=== PATIENT | female | born 1970 ===

== ENCOUNTER 2016-10-18 22:05 | Emergency (ER) | payer MEDICARE, OTHER ==
[2016-10-18 22:06] VITALS: BMI 29.1
[2016-10-18 22:18] VITALS: BP 111/72; PULSE 85; RESP 16; TEMP 97.5; O2SAT 98
--- NOTE | 2016-10-18 22:27 | ED PDOC ---
HPI: General Adult Time Seen by Provider: 10/18/16 22:19 Chief Complaint (Nursing): Female Genitourinary History Per: Patient Additional Complaint(s): Pt. states for the past 2 days she's had dysuria without hematuria, pelvic pain , frequency, urgency, fever. Denies N/V/D, fever, incontinence, flank pain. Past Medical History Reviewed: Historical Data, Nursing Documentation, Vital Signs Vital Signs: Last Vital Signs Temp 97.5 F L 10/18/16 22:16 Pulse 85 10/18/16 22:16 Resp 16 10/18/16 22:16 BP 111/72 10/18/16 22:16 Pulse Ox 98 10/18/16 22:28 - Medical History PMH: Anemia, Anxiety, Asthma, Bipolar Disorder, Depression, HTN, Hyperlipidemia , Hypothyroidism, Paranoia, Schizophrenia Denies: Chronic Kidney Disease, Sexually Transmitted Disease - Surgical History Surgical History: Tonsillectomy - Family History Family History: States: Hypertension - Immunization History Hx Tetanus Toxoid Vaccination: No Hx Influenza Vaccination: No Hx Pneumococcal Vaccination: No - Home Medications Home Medications: Ambulatory Orders Medication Instructions Recorded Albuterol HFA [Ventolin HFA 90 2 puff PO DAILY 08/31/16 mcg/actuation (8 g)] Alprazolam [Xanax] 0.25 mg PO DAILY 08/31/16 Aluminum Hydroxide [Aluminum 5 ml PO DAILY 08/31/16 Hydroxide Gel 320mg /5ml Susp (Bulk)] Benztropine [Benztropine Mesylate] 1 mg PO HS 08/31/16 Docusate Sodium/Sennosides A 50 mg PO DAILY 08/31/16 [Senokot S 50 MG-8.6 MG] LORazepam [Ativan] 1 mg PO DAILY 08/31/16 Levothyroxine [Synthroid] 125 mcg PO DAILY 08/31/16 Olanzapine [Olanzapine Odt] 15 mg PO HS 08/31/16 Promethazine DM [Phenergan DM 1 tsp PO TID 08/31/16 Syrup] Ramipril [Altace] 10 mg PO DAILY 08/31/16 Tramadol HCl [Ultram] 50 mg PO BID 08/31/16 Zolpidem Tartrate [Ambien] 10 mg PO HS 08/31/16 Enalapril Maleate [Vasotec] 10 mg PO DAILY #30 tab 09/07/16 Gabapentin [Neurontin] 300 mg PO BID #60 cap 09/07/16 Levothyroxine [Synthroid] 50 mcg PO DAILY@0630 #30 tab 09/07/16 OLANZapine [Zyprexa] 10 mg PO HS #30 tab 09/07/16 Sertraline [Zoloft] 100 mg PO DAILY #30 tab 09/07/16 traZODone [Desyrel] 100 mg PO HS PRN #30 tab 09/07/16 Phenazopyridine [Pyridium] 200 mg PO BID #6 tab 10/18/16 - Allergies Allergies/Adverse Reactions: Allergies Allergy/AdvReac Type Severity Reaction Status Date / Time haloperidol Allergy Severe SWELLING Verified 08/28/16 06:50 metoclopramide Allergy Severe SWELLING Verified 08/28/16 06:50 shellfish derived Allergy Severe RASH Verified 08/28/16 06:50 prednisone Allergy Intermediate SWELLING Verified 08/28/16 06:50 aspirin Allergy SWELLING Verified 08/28/16 06:50 Penicillins Allergy ANAPHYLAXIS Verified 08/28/16 06:50 Review of Systems ROS Statement: Except As Marked, All Systems Reviewed And Found Negative Genitourinary Female: Positive for: Dysuria Physical Exam - Physical Exam Appears: Positive for: Well, Non-toxic, No Acute Distress Skin: Positive for: Normal Color, Warm. Negative for: Rash Gastrointestinal/Abdominal: Positive for: Normal Exam, Soft. Negative for: Tenderness Back: Positive for: Normal Inspection. Negative for: L CVA Tenderness, R CVA Tenderness Neurologic/Psych: Positive for: Alert, Oriented - Laboratory Results Urine POC: Negative Urine dip results: Negative for: Leukocyte Esterase, Blood, Nitrate, Ketones, Glucose, Bilirubin, Protein - ECG O2 Sat by Pulse Oximetry: 98 - Progress ED Course And Treament: Urine culture sent. Disposition - Clinical Impression Clinical Impression: Dysuria - Patient ED Disposition Is Patient to be Admitted: No - Disposition Referrals: [facility] [Outside] Disposition: Routine/Home Disposition Time: 23:20 Condition: STABLE Prescriptions: Phenazopyridine [Pyridium] 200 mg PO BID #6 tab Instructions: Dysuria (ED) Forms: [email or web address] (Turkish) Print Language: VIETNAMESE
== END 2016-10-18 23:56 | disposition home or self-care (01) ==
LOC: H.ER 22:05
DX: N39.0 Urinary tract infection, site not specified (principal); F20.9 Schizophrenia, unspecified; F31.9 Bipolar disorder, unspecified; F41.9 Anxiety disorder, unspecified; I10 Essential (primary) hypertension; Z88.0 Allergy status to penicillin

== ENCOUNTER 2016-10-30 05:11 | Emergency (ER) | payer MEDICARE, OTHER ==
[2016-10-30 05:11] VITALS: BMI 29.1
[2016-10-30 05:29] VITALS: BP 117/82; PULSE 83; RESP 16; TEMP 98.3; O2SAT 100
[2016-10-30] MEDS ORDERED: Tmp-Smz 800 mg-160 mg DS Tab PO STA (05:51)
--- NOTE | 2016-10-30 06:07 | ED PDOC ---
HPI: Skin/Bite Injury Time Seen by Provider: 10/30/16 05:29 Chief Complaint (Nursing): Abnormal Skin Integrity Chief Complaint (Provider): Abnormal Skin Integrity History Per: Patient History/Exam Limitations: no limitations Onset/Duration Of Symptoms: Days (x2) Current Symptoms Are (Timing): Still Present Additional Complaint(s): Jolanta Yancey is a 45 year old female with previous medical history of hypertension, thyroid disease, and bipolar disorder, who presents to the emergency department with a complaint lower extremities rash associated with swelling ongoing for 2 days. Denied any fever, chills, nausea, vomiting, diarrhea, shortness of breath or chest pain. Patient stated she has parasitic sensation and warmth to bilateral feet and shins, right more than left. PMD: none provided Past Medical History Reviewed: Historical Data, Nursing Documentation, Vital Signs Vital Signs: Last Vital Signs Temp 98.3 F 10/30/16 05:27 Pulse 83 10/30/16 05:27 Resp 16 10/30/16 05:27 BP 117/82 10/30/16 05:27 Pulse Ox 100 10/30/16 06:19 - Medical History PMH: Anemia, Anxiety, Asthma, Bipolar Disorder, Depression, HTN, Hyperlipidemia , Hypothyroidism, Paranoia, Schizophrenia Denies: Chronic Kidney Disease, Sexually Transmitted Disease - Surgical History Surgical History: Tonsillectomy - Family History Family History: States: Unknown Family Hx, Hypertension - Social History Current smoker - smoking cessation education provided: No Alcohol: None Drugs: Denies - Immunization History Hx Tetanus Toxoid Vaccination: No Hx Influenza Vaccination: No Hx Pneumococcal Vaccination: No - Home Medications Home Medications: Ambulatory Orders Medication Instructions Recorded Albuterol HFA [Ventolin HFA 90 2 puff PO DAILY 08/31/16 mcg/actuation (8 g)] Alprazolam [Xanax] 0.25 mg PO DAILY 08/31/16 Aluminum Hydroxide [Aluminum 5 ml PO DAILY 08/31/16 Hydroxide Gel 320mg /5ml Susp (Bulk)] Benztropine [Benztropine Mesylate] 1 mg PO HS 08/31/16 Docusate Sodium/Sennosides A 50 mg PO DAILY 08/31/16 [Senokot S 50 MG-8.6 MG] LORazepam [Ativan] 1 mg PO DAILY 08/31/16 Levothyroxine [Synthroid] 125 mcg PO DAILY 08/31/16 Olanzapine [Olanzapine Odt] 15 mg PO HS 08/31/16 Promethazine DM [Phenergan DM 1 tsp PO TID 08/31/16 Syrup] Ramipril [Altace] 10 mg PO DAILY 08/31/16 Tramadol HCl [Ultram] 50 mg PO BID 08/31/16 Zolpidem Tartrate [Ambien] 10 mg PO HS 08/31/16 Enalapril Maleate [Vasotec] 10 mg PO DAILY #30 tab 09/07/16 Gabapentin [Neurontin] 300 mg PO BID #60 cap 09/07/16 Levothyroxine [Synthroid] 50 mcg PO DAILY@0630 #30 tab 09/07/16 OLANZapine [Zyprexa] 10 mg PO HS #30 tab 09/07/16 Sertraline [Zoloft] 100 mg PO DAILY #30 tab 09/07/16 traZODone [Desyrel] 100 mg PO HS PRN #30 tab 09/07/16 Phenazopyridine [Pyridium] 200 mg PO BID #6 tab 10/18/16 Hydrocortisone 1% Cream [Cortizone 1 inch TP BID #1 tube 10/30/16 1% Cream] Sulfamethoxazole/Trimethoprim 1 tab PO BID #20 tab 10/30/16 [Bactrim DS 800 mg-160 mg] - Allergies Allergies/Adverse Reactions: Allergies Allergy/AdvReac Type Severity Reaction Status Date / Time haloperidol Allergy Severe SWELLING Verified 08/28/16 06:50 metoclopramide Allergy Severe SWELLING Verified 08/28/16 06:50 shellfish derived Allergy Severe RASH Verified 08/28/16 06:50 prednisone Allergy Intermediate SWELLING Verified 08/28/16 06:50 aspirin Allergy SWELLING Verified 08/28/16 06:50 Penicillins Allergy ANAPHYLAXIS Verified 08/28/16 06:50 Review of Systems ROS Statement: Except As Marked, All Systems Reviewed And Found Negative Constitutional: Negative for: Fever, Chills Cardiovascular: Negative for: Chest Pain Respiratory: Negative for: Shortness of Breath Gastrointestinal: Negative for: Nausea, Vomiting, Diarrhea Skin: Positive for: Rash (bilateral feet and shins; right > left) Physical Exam - Reviewed Nursing Documentation Reviewed: Yes Vital Signs Reviewed: Yes - Physical Exam Extremity: Positive for: Pedal Edema (mild; right > left), Swelling (mild; right > left), Other (bilateral vesicular bites on feet extending to dorsal aspect of tibial plateau; right > left) - ECG O2 Sat by Pulse Oximetry: 100 (RA) Pulse Ox Interpretation: Normal Medical Decision Making Medical Decision Making: Initial Impression: Multiple insect bites to LE Initial Plan: * Bactrim DS PO Time: Upon provider evaluation, patient is medically stable and requires no further treatment in the ED at this time. Patient will be discharged home with Rx for Cortizone and Bactrim DS. Counseling was provided and all questions were answered regarding diagnosis and need for follow up with PCP. There is agreement to discharge plan. Return if symptoms persist or worsen. Clinical Impression: Infected insect bites Scribe Attestation: Documented by Ruth Guillory, acting as a scribe for Gregory Augustine MD. Provider Scribe Attestation: All medical record entries made by the Scribe were at my direction and personally dictated by me. I have reviewed the chart and agree that the record accurately reflects my personal performance of the history, physical exam, medical decision making, and the department course for this patient. I have also personally directed, reviewed, and agree with the discharge instructions and disposition. Disposition - Clinical Impression Clinical Impression: Infected insect bite - Patient ED Disposition Is Patient to be Admitted: No Doctor Will See Patient In The: Office Counseled Patient/Family Regarding: Diagnosis, Rx Given - Disposition Disposition: Routine/Home Disposition Time: 06:00 Condition: STABLE Prescriptions: Hydrocortisone 1% Cream [Cortizone 1% Cream] 1 inch TP BID #1 tube Sulfamethoxazole/Trimethoprim [Bactrim DS 800 mg-160 mg] 1 tab PO BID #20 tab Instructions: Insect Bite or Sting (ED) Forms: [employer] (Greek)
[2016-10-30] MEDS ORDERED: Tmp-Smz 800 mg-160 mg DS Tab ONE (06:08)
== END 2016-10-30 06:14 | disposition home or self-care (01) ==
LOC: H.ER 05:11
DX: S80.862A Insect bite (nonvenomous), left lower leg, initial encounter (principal); S80.861A Insect bite (nonvenomous), right lower leg, initial encounter; W57.XXXA Bitten or stung by nonvenomous insect and other nonvenomous arthropods, initial encounter; I10 Essential (primary) hypertension

== ENCOUNTER 2016-11-02 03:46 | Emergency (ER) | payer MEDICARE, OTHER ==
[2016-11-02 03:46] VITALS: BMI 29.1
[2016-11-02 04:35] VITALS: BP 118/80; PULSE 81; RESP 16; TEMP 97.5; O2SAT 98
== END 2016-11-02 04:52 | disposition left against medical advice (07) ==
LOC: H.ER 03:46
DX: Z02.89 Encounter for other administrative examinations (principal)

== ENCOUNTER 2016-12-12 04:28 | Emergency (ER) | payer MEDICARE, OTHER ==
[2016-12-12 04:28] VITALS: BMI 29.1
[2016-12-12 04:54] VITALS: BP 134/83; PULSE 87; RESP 16; TEMP 98.1; O2SAT 97
--- NOTE | 2016-12-12 04:55 | ED PDOC ---
HPI: Abdomen Time Seen by Provider: 12/12/16 04:30 Chief Complaint (Nursing): Abdominal Pain Chief Complaint (Provider): ''urination issues'' History Per: Patient History/Exam Limitations: no limitations Onset/Duration Of Symptoms: Days (1 week) Outside of [place] travel?: No Current Symptoms Are (Timing): Intermittent Episodes Severity: Mild Quality Of Discomfort: Burning Associated Symptoms: Urinary Symptoms. denies: Fever, Chills, Nausea, Diarrhea , Loss Of Appetite, Back Pain Exacerbating Factors: denies: None Last Bowel Movement: Today Additional History Per: Patient Additional Complaint(s): CC: ''urination issues'' 46 y/o F with h/o multiple psych disorders presenting with problems with urination x 1 week. States intermittent burning with urination and frequency. No urgency, f/c/n/v/abdominal pain/diarrhea. Patient is a poor historian, displaying bed seeking behavior and asking to be admitted to the hospital. States being compliant with her medication. Denies suicidal or homicidal ideations. Abnormal Vaginal Bleeding: No Last Menstral Period: ''irregular'', doesnt remember date Past Medical History Vital Signs: Last Vital Signs Temp 98.1 F 12/12/16 04:41 Pulse 87 12/12/16 04:41 Resp 16 12/12/16 04:41 BP 134/83 12/12/16 04:41 Pulse Ox 97 12/12/16 05:15 - Medical History PMH: Anemia, Anxiety, Asthma, Bipolar Disorder, Depression, HTN, Hyperlipidemia , Hypothyroidism, Paranoia, Schizophrenia Denies: Chronic Kidney Disease, Sexually Transmitted Disease - Surgical History Surgical History: Tonsillectomy - Family History Family History: States: Unknown Family Hx, Hypertension - Immunization History Hx Tetanus Toxoid Vaccination: No Hx Influenza Vaccination: No Hx Pneumococcal Vaccination: No - Home Medications Home Medications: Ambulatory Orders Medication Instructions Recorded Albuterol HFA [Ventolin HFA 90 2 puff PO DAILY 08/31/16 mcg/actuation (8 g)] Alprazolam [Xanax] 0.25 mg PO DAILY 08/31/16 Aluminum Hydroxide [Aluminum 5 ml PO DAILY 08/31/16 Hydroxide Gel 320mg /5ml Susp (Bulk)] Benztropine [Benztropine Mesylate] 1 mg PO HS 08/31/16 Docusate Sodium/Sennosides A 50 mg PO DAILY 08/31/16 [Senokot S 50 MG-8.6 MG] LORazepam [Ativan] 1 mg PO DAILY 08/31/16 Levothyroxine [Synthroid] 125 mcg PO DAILY 08/31/16 Olanzapine [Olanzapine Odt] 15 mg PO HS 08/31/16 Promethazine DM [Phenergan DM 1 tsp PO TID 08/31/16 Syrup] Ramipril [Altace] 10 mg PO DAILY 08/31/16 Tramadol HCl [Ultram] 50 mg PO BID 08/31/16 Zolpidem Tartrate [Ambien] 10 mg PO HS 08/31/16 Enalapril Maleate [Vasotec] 10 mg PO DAILY #30 tab 09/07/16 Gabapentin [Neurontin] 300 mg PO BID #60 cap 09/07/16 Levothyroxine [Synthroid] 50 mcg PO DAILY@0630 #30 tab 09/07/16 OLANZapine [Zyprexa] 10 mg PO HS #30 tab 09/07/16 Sertraline [Zoloft] 100 mg PO DAILY #30 tab 09/07/16 traZODone [Desyrel] 100 mg PO HS PRN #30 tab 09/07/16 Phenazopyridine [Pyridium] 200 mg PO BID #6 tab 10/18/16 Hydrocortisone 1% Cream [Cortizone 1 inch TP BID #1 tube 10/30/16 1% Cream] Sulfamethoxazole/Trimethoprim 1 tab PO BID #20 tab 10/30/16 [Bactrim DS 800 mg-160 mg] - Allergies Allergies/Adverse Reactions: Allergies Allergy/AdvReac Type Severity Reaction Status Date / Time haloperidol Allergy Severe SWELLING Verified 08/28/16 06:50 metoclopramide Allergy Severe SWELLING Verified 08/28/16 06:50 shellfish derived Allergy Severe RASH Verified 08/28/16 06:50 prednisone Allergy Intermediate SWELLING Verified 08/28/16 06:50 aspirin Allergy SWELLING Verified 08/28/16 06:50 Penicillins Allergy ANAPHYLAXIS Verified 08/28/16 06:50 Review of Systems ROS Statement: Except As Marked, All Systems Reviewed And Found Negative Physical Exam - Physical Exam Appears: Positive for: Non-toxic, No Acute Distress Head Exam: Positive for: ATRAUMATIC, NORMOCEPHALIC Skin: Positive for: Normal Color, Warm, Dry Eye Exam: Positive for: EOMI, PERRL Cardiovascular/Chest: Positive for: Regular Rate, Rhythm Respiratory: Positive for: Normal Breath Sounds Gastrointestinal/Abdominal: Positive for: Bowel Sounds, Soft. Negative for: Tenderness, Mass, Distended, Guarding, Rebound, Hernia, Asicites Back: Negative for: L CVA Tenderness, R CVA Tenderness Extremity: Negative for: Pedal Edema Neurologic/Psych: Positive for: Alert, Oriented - ECG O2 Sat by Pulse Oximetry: 97 - Progress ED Course And Treament: Dysuria Vital signs stable UA WNL Urine BHCG negative Re-evaluation Time: 05:55 Condition: Re-examined, Improving,but remains with symptoms Disposition - Clinical Impression Clinical Impression: Abdominal discomfort, Alcohol use disorder, mild, abuse - Disposition Disposition: Routine/Home Disposition Time: 05:57 Condition: GOOD Additional Instructions: patient to follow up with PMD and psych as directed Er precautions given Instructions: Dysuria (ED) Forms: [employer] (Ecuadorean) Print Language: SLOVENIAN
[2016-12-12 05:44] LABS: RBC URINE 5 /hpf (0-3); URINE BACTERIA RARE (<OCC); URINE BILIRUBIN NEGATIVE (NEGATIVE); URINE BLOOD NEGATIVE (NEGATIVE); URINE COLOR AMBER (YELLOW); URINE GLUCOSE (UA) NEG (Normal); URINE KETONE TRACE mg/dL (NEGATIVE); URINE LEUKOCYTE ESTERASE NEG Leu/uL (Negative); URINE PROTEIN 30 mg/dL (NEGATIVE); WBC URINE 2 /hpf (0-5)
== END 2016-12-12 06:18 | disposition home or self-care (01) ==
LOC: H.ER 04:28
DX: R30.0 Dysuria (principal)

== ENCOUNTER 2016-12-12 14:36 | Emergency (ER) | payer MEDICARE, OTHER ==
[2016-12-12 14:36] VITALS: BMI 29.1
[2016-12-12 14:40] VITALS: O2SAT 98
--- NOTE | 2016-12-12 15:16 | ED PDOC ---
HPI: General Adult Time Seen by Provider: 12/12/16 15:06 Chief Complaint (Nursing): Weakness/Neurological Deficit Chief Complaint (Provider): Chest pain and lightheadedness History Per: Patient History/Exam Limitations: no limitations Current Symptoms Are (Timing): Still Present Additional Complaint(s): 46 y/o female with a past medical history of hypertension, hypercholesterolemia , hypothyroidism, and schizoaffective disorder who presents to the emergency department with a complaint of chest pain, experiencing a "strong" heartbeat, lightheadedness and shortness of breath since 10 am this morning after being outside all day. Reports she was depressed last week and felt like she wanted to hurt someone in the homeless [facility] specifically because she lives there. Patient admits she is non-compliant with her medications because she ran out. Denies leg swelling, cough, or hallucinations. PMD: Dr. Cristobal Woo DO Past Medical History Reviewed: Historical Data, Nursing Documentation, Vital Signs Vital Signs: Last Vital Signs Temp 98.4 F 12/12/16 16:55 Pulse 98 H 12/12/16 16:55 Resp 18 12/12/16 16:55 BP 112/73 12/12/16 16:55 Pulse Ox 98 12/12/16 16:55 - Medical History PMH: Anemia, Anxiety, Asthma, Bipolar Disorder, Depression, HTN, Hyperlipidemia , Hypothyroidism, Paranoia, Schizophrenia Denies: Chronic Kidney Disease, Sexually Transmitted Disease - Surgical History Surgical History: Tonsillectomy - Family History Family History: States: Hypertension, Other Other Family History: Leukemia and anemia (father) - Social History Current smoker - smoking cessation education provided: No Alcohol: None Drugs: Denies - Immunization History Hx Tetanus Toxoid Vaccination: No Hx Influenza Vaccination: No Hx Pneumococcal Vaccination: No - Home Medications Home Medications: Ambulatory Orders Medication Instructions Recorded Albuterol HFA [Ventolin HFA 90 2 puff PO DAILY 08/31/16 mcg/actuation (8 g)] Alprazolam [Xanax] 0.25 mg PO DAILY 08/31/16 Aluminum Hydroxide [Aluminum 5 ml PO DAILY 08/31/16 Hydroxide Gel 320mg /5ml Susp (Bulk)] Benztropine [Benztropine Mesylate] 1 mg PO HS 08/31/16 Docusate Sodium/Sennosides A 50 mg PO DAILY 08/31/16 [Senokot S 50 MG-8.6 MG] LORazepam [Ativan] 1 mg PO DAILY 08/31/16 Levothyroxine [Synthroid] 125 mcg PO DAILY 08/31/16 Olanzapine [Olanzapine Odt] 15 mg PO HS 08/31/16 Promethazine DM [Phenergan DM 1 tsp PO TID 08/31/16 Syrup] Ramipril [Altace] 10 mg PO DAILY 08/31/16 Tramadol HCl [Ultram] 50 mg PO BID 08/31/16 Zolpidem Tartrate [Ambien] 10 mg PO HS 08/31/16 Enalapril Maleate [Vasotec] 10 mg PO DAILY #30 tab 09/07/16 Gabapentin [Neurontin] 300 mg PO BID #60 cap 09/07/16 Levothyroxine [Synthroid] 50 mcg PO DAILY@0630 #30 tab 09/07/16 OLANZapine [Zyprexa] 10 mg PO HS #30 tab 09/07/16 Sertraline [Zoloft] 100 mg PO DAILY #30 tab 09/07/16 traZODone [Desyrel] 100 mg PO HS PRN #30 tab 09/07/16 Phenazopyridine [Pyridium] 200 mg PO BID #6 tab 10/18/16 Hydrocortisone 1% Cream [Cortizone 1 inch TP BID #1 tube 10/30/16 1% Cream] Sulfamethoxazole/Trimethoprim 1 tab PO BID #20 tab 10/30/16 [Bactrim DS 800 mg-160 mg] - Allergies Allergies/Adverse Reactions: Allergies Allergy/AdvReac Type Severity Reaction Status Date / Time haloperidol Allergy Severe SWELLING Verified 12/12/16 14:37 metoclopramide Allergy Severe SWELLING Verified 12/12/16 14:37 shellfish derived Allergy Severe RASH Verified 12/12/16 14:37 prednisone Allergy Intermediate SWELLING Verified 12/12/16 14:37 aspirin Allergy SWELLING Verified 12/12/16 14:37 Penicillins Allergy ANAPHYLAXIS Verified 12/12/16 14:37 Review of Systems ROS Statement: Except As Marked, All Systems Reviewed And Found Negative (As per HPI otherwise negative) Constitutional: Positive for: Other (Lightheadedness ) Cardiovascular: Positive for: Chest Pain, Other ("Strong" heartbeat) Respiratory: Positive for: Shortness of Breath. Negative for: Cough Musculoskeletal: Negative for: Other (Leg swelling) Psych: Positive for: Depression. Negative for: Other (Hallucination) Physical Exam - Reviewed Nursing Documentation Reviewed: Yes Vital Signs Reviewed: Yes - Physical Exam Appears: Positive for: Well, Non-toxic, No Acute Distress Head Exam: Positive for: ATRAUMATIC, NORMOCEPHALIC Skin: Positive for: Warm, Dry Eye Exam: Positive for: EOMI, PERRL ENT: Negative for: Pharyngeal Erythema, Tonsillar Exudate Neck: Positive for: Painless ROM, Supple Cardiovascular/Chest: Positive for: Regular Rate, Rhythm, Chest Non Tender. Negative for: Murmur Respiratory: Positive for: Normal Breath Sounds. Negative for: Accessory Muscle Use, Wheezing, Respiratory Distress Gastrointestinal/Abdominal: Positive for: Soft. Negative for: Tenderness, Mass , Distended, Guarding Back: Positive for: Normal Inspection. Negative for: Decreased ROM Extremity: Positive for: Normal ROM. 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 Negative for: Motor/Sensory Deficits, Aphasia, Facial Droop - Laboratory Results Result Diagrams: 12/12/16 15:37 12/12/16 15:37 - ECG O2 Sat by Pulse Oximetry: 98 (RA) Pulse Ox Interpretation: Normal Medical Decision Making Medical Decision Making: Time: 15:08 Initial Impression: Atypical chest pain and depression. Differential includes depression, adjustment disorder, malingering, ACS, PE, dehydration, heat exhaustion, and electrolyte abnormality Initial Plan: --Blood and lab work-up --Urine DIP & Preg --EKG --Chest x-ray --Reevaluation No clinically significant lab abnormalities. EKG sinus tachy otherwise normal. CXR with no acute abnormalities. Pt is medically stable for psychiatric evaluation and admission if necessary CW evaluated pt and she is stable for dc. Scribe Attestation: Documented by Kaylie Sylvester, acting as a scribe for Alba Parnell MD. Provider Scribe Attestation: All medical record entries made by the Scribe were at my direction and personally dictated by me. I have reviewed the chart and agree that the record accurately reflects my personal performance of the history, physical exam, medical decision making, and the department course for this patient. I have also personally directed, reviewed, and agree with the discharge instructions and disposition. Disposition - Clinical Impression Clinical Impression: Schizoaffective disorder, Weakness - Disposition Referrals: Elias Woo DO [Family Provider] - [facility] [Outside] Disposition: Routine/Home Disposition Time: 17:00 Condition: GOOD Instructions: Weakness (ED), Schizoaffective Disorder (ED) Forms: [employer] (Nepali)
[2016-12-12 15:42] LABS: BASO % 0.5 % (0.0-2.0); EOS # 0.3 K/uL (0.0-0.7); HEMATOCRIT 34.9 % (34.0-47.0); LYMPH % 34.6 % (20.0-40.0); MEAN CELL VOLUME 83.1 fl (81.0-99.0); MEAN CORPUSCULAR HEMOGLOBIN 26.8 pg (27.0-31.0); MEAN CORPUSCULAR HGB CONC 32.2 g/dL (33.0-37.0); MEAN PLATELET VOLUME 9.4 fl (7.2-11.7); MONO # 0.8 K/uL (0.0-0.8); MONO % 8.7 % (0.0-10.0); NEUT # 4.5 K/uL (1.8-7.0); NEUT % 52.2 % (50.0-75.0); RED CELL DISTRIBUTION WIDTH 14.9 % (11.5-14.5); WHITE BLOOD COUNT 8.7 K/uL (4.8-10.8)
[2016-12-12 16:05] LABS: ALB/GLOB RATIO 1.2 (1.0-2.1); ALCOHOL SERUM < 10 mg/dl (0-10); ALKALINE PHOSPHATASE 81 U/L (38-126); ALT/SGPT 19 U/L (9-52); AST/SGOT 25 U/L (14-36); BILIRUBIN,TOTAL 0.6 mg/dl (0.2-1.3); BLOOD UREA NITROGEN 9 mg/dl (7-17); CALCIUM 9.3 mg/dL (8.4-10.2); CARBON DIOXIDE 25 mmol/L (22-30); CHLORIDE 103 mmol/L (98-107); GFR AFRICAN-AMERICAN > 60; GLUCOSE,RANDOM 81 mg/dL (65-105); MAGNESIUM 1.8 MG/DL (1.6-2.3); PHOSPHOROUS 3.1 mg/dl (2.5-4.5); POTASSIUM 4.2 MMOL/L (3.6-5.0); SODIUM 141 mmol/l (132-148); TOTAL PROTEIN 8.3 G/DL (6.3-8.2)
[2016-12-12 16:23] LABS: PARTIAL THROMBOPLASTIN TIME 29.4 Seconds (25.6-37.1)
[2016-12-12 16:33] LABS: THYROID STIMULATING HORMONE 1.95 mIU/ML (0.46-4.68)
[2016-12-12 16:56] VITALS: BP 112/73; PULSE 98; RESP 18; TEMP 98.4
--- NOTE | 2016-12-12 17:55 | RAD ---
HISTORY: chest pain COMPARISON: Comparison is made to 03/08/2016 TECHNIQUE: Chest PA and lateral FINDINGS: LUNGS: No active pulmonary disease. PLEURA: No significant pleural effusion identified. No pneumothorax apparent. CARDIOVASCULAR: Normal. OSSEOUS STRUCTURES: No significant abnormalities. VISUALIZED UPPER ABDOMEN: Normal. OTHER FINDINGS: None. IMPRESSION: No active disease.
--- NOTE | 2016-12-13 11:38 | CARD ---
APPROVED REPORT EKG Measurement Heart [id number] ID [id number] <Conclusion> Sinus tachycardia Otherwise normal ECG
== END 2016-12-12 17:54 | disposition home or self-care (01) ==
LOC: H.ER 14:36
DX: R53.1 Weakness (principal); F25.9 Schizoaffective disorder, unspecified; I10 Essential (primary) hypertension; Z91.14 Patient's other noncompliance with medication regimen; E03.9 Hypothyroidism, unspecified; E78.00 Pure hypercholesterolemia, unspecified; F31.9 Bipolar disorder, unspecified; F41.9 Anxiety disorder, unspecified; J45.909 Unspecified asthma, uncomplicated; Z88.0 Allergy status to penicillin
CPT/HCPCS: 71020; 80053; 82550; 82948; 83735; 83880; 84100; 84443; 84484; 84703; 85025; 85378; 85610; 85730; 86850; 86900; 93005; 99284; G0480

== ENCOUNTER 2016-12-21 01:49 | Emergency (ER) | payer MEDICARE, MEDICAID ==
[2016-12-21 01:49] VITALS: BMI 29.1
[2016-12-21 02:18] VITALS: BP 140/95; PULSE 90; RESP 16; TEMP 97.7; O2SAT 98
--- NOTE | 2016-12-21 02:34 | ED PDOC ---
HPI: Psych/Substance Abuse Time Seen by Provider: 12/21/16 02:11 Chief Complaint (Nursing): Anxiety Chief Complaint (Provider): anxiety History Per: Patient History/Exam Limitations: no limitations Onset/Duration Of Symptoms: Days (1) Current Symptoms Are (Timing): Still Present Additional History Per: Patient Additional Complaint(s): 46 y/o female presents to ED with complaints of feeling anxious x 1 day. Associated palpitations. Patient states she has been under a lot of stress lately, and she does not have her psych medications, states she figured she would come to the ED to try and "calm down" before she "hurts someone and has to go to detention". Patient denies headache, dizziness, extremity numbness/weakness , vision changes, chest pain, shortness of breath, leg pain/swelling, suicidal/ homicidal ideations. Past Medical History Reviewed: Historical Data, Nursing Documentation, Vital Signs Vital Signs: Last Vital Signs Temp 97.7 F 12/21/16 02:16 Pulse 90 12/21/16 02:16 Resp 16 12/21/16 02:16 BP 140/95 H 12/21/16 02:16 Pulse Ox 98 12/21/16 02:16 - Medical History PMH: Anemia, Anxiety, Asthma, Bipolar Disorder, Depression, HTN, Hyperlipidemia , Hypothyroidism, Paranoia, Schizophrenia, Seizures Denies: Diabetes, Hepatitis, HIV, Chronic Kidney Disease, Sexually Transmitted Disease - Surgical History Surgical History: Tonsillectomy - Family History Family History: States: Unknown Family Hx, Hypertension - Immunization History Hx Tetanus Toxoid Vaccination: No Hx Influenza Vaccination: No Hx Pneumococcal Vaccination: No - Home Medications Home Medications: Ambulatory Orders Medication Instructions Recorded Ambien 12/13/16 Ativan 12/13/16 Cogentin 12/13/16 Enalapril Maleate 12/13/16 Gabapentin 12/13/16 OLANZapine [ZyPREXA] 10 mg PO 12/13/16 Synthroid 12/13/16 Zoloft 12/13/16 - Allergies Allergies/Adverse Reactions: Allergies Allergy/AdvReac Type Severity Reaction Status Date / Time haloperidol Allergy Severe SWELLING Verified 12/12/16 14:37 metoclopramide Allergy Severe SWELLING Verified 12/12/16 14:37 shellfish derived Allergy Severe RASH Verified 12/12/16 14:37 prednisone Allergy Intermediate SWELLING Verified 12/12/16 14:37 aspirin Allergy SWELLING Verified 12/12/16 14:37 Penicillins Allergy ANAPHYLAXIS Verified 12/12/16 14:37 Review of Systems ROS Statement: Except As Marked, All Systems Reviewed And Found Negative Psych: Positive for: Anxiety Physical Exam - Reviewed Nursing Documentation Reviewed: Yes Vital Signs Reviewed: Yes - Physical Exam Appears: Positive for: Well, Non-toxic, Uncomfortable (anxious) Head Exam: Positive for: ATRAUMATIC, NORMAL INSPECTION, NORMOCEPHALIC Skin: Positive for: Normal Color Eye Exam: Positive for: Normal appearance ENT: Positive for: Normal ENT Inspection Cardiovascular/Chest: Positive for: Regular Rate, Rhythm Respiratory: Positive for: Normal Breath Sounds Gastrointestinal/Abdominal: Positive for: Normal Exam Extremity: Positive for: Normal ROM Neurologic/Psych: Positive for: Alert, Oriented - ECG ECG: Positive for: Viewed By Me (reviewed by ED attending) ECG Rhythm: Positive for: Sinus Rhythm O2 Sat by Pulse Oximetry: 98 Pulse Ox Interpretation: Normal - Progress ED Course And Treament: ekg, crisis eval Patient evaluated by social staff worker; does not meet criteria for admission at this time. Information given for outpatient follow up. Return to ED for worsening/concerning symptoms. Disposition - Clinical Impression Clinical Impression: Anxiety - Patient ED Disposition Is Patient to be Admitted: No Counseled Patient/Family Regarding: Studies Performed, Diagnosis, Need For Followup - Disposition Referrals: Elias Woo DO [Primary Care Provider] - [facility] [Outside] Disposition: Routine/Home Disposition Time: 03:23 Condition: IMPROVED Instructions: Anxiety (ED)
--- NOTE | 2016-12-22 01:15 | CARD ---
APPROVED REPORT EKG Measurement Heart [id number] <Conclusion> Normal sinus rhythm Normal ECG
== END 2016-12-21 04:09 | disposition home or self-care (01) ==
LOC: H.ER 01:49
DX: R30.0 Dysuria (principal); R00.2 Palpitations

== ENCOUNTER 2017-01-03 00:22 | Emergency (ER) | payer MEDICARE, OTHER ==
[2017-01-03 00:23] VITALS: BMI 29.1
[2017-01-03 00:29] VITALS: BP 125/80; PULSE 91; RESP 16; TEMP 99; O2SAT 98
[2017-01-03] MEDS ORDERED: Albuterol-Ipratrop 3 mg / 0.5 (3 ml) UD INH STA (00:41)
--- NOTE | 2017-01-03 00:49 | ED PDOC ---
HPI: CCC, URI, Sore Throat Time Seen by Provider: 01/03/17 00:34 Chief Complaint (Nursing): Cough, Cold, Congestion Chief Complaint (Provider): Cough, Sore Throat History Per: Patient History/Exam Limitations: no limitations Have you had recent travel within the past 21 days to any of the following countries: [place], [place], [place] or [place]?: No Onset/Duration Of Symptoms: Days (2) Current Symptoms Are (Timing): Still Present Location Of Pain: Throat Associated Symptoms: Sore Throat, Cough, Sputum, Other (Malaise ). denies: Fever Severity: Moderate Additional History Per: Patient Additional Complaint(s): 46 y/o female with PMHx BiPilar Disorder and Asthma, complaining of two days of sore throat, malaise, as well as productive cough with yellow/green phlegm without associated fever. She was recently released from [facility] for inpatient psych. Patient denies smoking but reports that she is exposed second hand. She is homeless. Past Medical History Vital Signs: Last Vital Signs Temp 99.0 F 01/03/17 00:26 Pulse 91 H 01/03/17 00:26 Resp 16 01/03/17 00:26 BP 125/80 01/03/17 00:26 Pulse Ox 98 01/03/17 00:51 - Medical History PMH: Anemia, Anxiety, Asthma, Bipolar Disorder, Depression, HTN, Hyperlipidemia , Hypothyroidism, Paranoia, Schizophrenia, Seizures Denies: Diabetes, Hepatitis, HIV, Chronic Kidney Disease, Sexually Transmitted Disease - Surgical History Surgical History: Tonsillectomy - Family History Family History: States: Hypertension - Social History Current smoker - smoking cessation education provided: No Ex-Smoker (has not smoked in the last 12 months): No Alcohol: None Drugs: Denies - Immunization History Hx Tetanus Toxoid Vaccination: No Hx Influenza Vaccination: No Hx Pneumococcal Vaccination: No - Home Medications Home Medications: Ambulatory Orders Medication Instructions Recorded Ambien 12/13/16 Ativan 12/13/16 Cogentin 12/13/16 Enalapril Maleate 12/13/16 Gabapentin 12/13/16 OLANZapine [ZyPREXA] 10 mg PO 12/13/16 Synthroid 12/13/16 Zoloft 12/13/16 Azithromycin [Zithromax] 250 mg PO QAM #1 pkg 01/03/17 - Allergies Allergies/Adverse Reactions: Allergies Allergy/AdvReac Type Severity Reaction Status Date / Time haloperidol Allergy Severe SWELLING Verified 12/12/16 14:37 metoclopramide Allergy Severe SWELLING Verified 12/12/16 14:37 shellfish derived Allergy Severe RASH Verified 12/12/16 14:37 prednisone Allergy Intermediate SWELLING Verified 12/12/16 14:37 aspirin Allergy SWELLING Verified 12/12/16 14:37 Penicillins Allergy ANAPHYLAXIS Verified 12/12/16 14:37 Review of Systems ROS Statement: Except As Marked, All Systems Reviewed And Found Negative Constitutional: Positive for: Malaise. Negative for: Fever ENT: Positive for: Throat Pain Respiratory: Positive for: Cough Physical Exam - Reviewed Nursing Documentation Reviewed: Yes Vital Signs Reviewed: Yes - Physical Exam Appears: Positive for: Well, Non-toxic, No Acute Distress Head Exam: Positive for: ATRAUMATIC, NORMAL INSPECTION, NORMOCEPHALIC Skin: Positive for: Normal Color, Warm, DRY Eye Exam: Positive for: EOMI, Normal appearance, PERRL ENT: Positive for: Pharyngeal Erythema. Negative for: Tonsillar Exudate, Tonsillar Swelling Neck: Positive for: Normal, Painless ROM Cardiovascular/Chest: Positive for: Regular Rate, Rhythm Respiratory: Positive for: Rhonchi (bilaterally). Negative for: Normal Breath Sounds, Respiratory Distress Gastrointestinal/Abdominal: Positive for: Normal Exam, Bowel Sounds, Soft Back: Positive for: Normal Inspection Extremity: Positive for: Normal ROM Lymphatic: Positive for: Other (right sided anterior cervial lymphadenopathy ) Neurologic/Psych: Positive for: Alert, Oriented - ECG O2 Sat by Pulse Oximetry: 98 (RA) Pulse Ox Interpretation: Normal - Radiology X-Ray: Interpreted by Me, Viewed By Me X-Ray Interpretation: No Acute Disease Medical Decision Making Medical Decision Making: Impression: 46 y/o female with URI symptoms in the setting of Asthma Plan: - Flu and Strep swab - Duo Neb - CXR CXR shows no acute disease. Flu and Strep swaps are negative. Patient reevaluated and is feeling better. Diagnosis: URI Condition: Stable Scribe Attestation: Documented by Amber Weston, acting as a scribe for Gregory Augustine MD Provider Scribe Attestation: All medical record entries made by the Scribe were at my direction and personally dictated by me. I have reviewed the chart and agree that the record accurately reflects my personal performance of the history, physical exam, medical decision making, and the department course for this patient. I have also personally directed, reviewed, and agree with the discharge instructions and disposition. Disposition - Clinical Impression Clinical Impression: URI (upper respiratory infection) - Patient ED Disposition Is Patient to be Admitted: No Doctor Will See Patient In The: Office Counseled Patient/Family Regarding: Studies Performed, Diagnosis, Need For Followup - Disposition Disposition: Routine/Home Disposition Time: 01:35 Condition: STABLE Prescriptions: Azithromycin [Zithromax] 250 mg PO QAM #1 pkg Instructions: Upper Respiratory Infection (ED) Forms: [employer] (Lao)
--- NOTE | 2017-01-03 08:34 | RAD ---
HISTORY: cough COMPARISON: Chest radiographs 12/12/2016. TECHNIQUE: Chest PA and lateral FINDINGS: LUNGS: No active pulmonary disease. PLEURA: No significant pleural effusion identified. No pneumothorax apparent. CARDIOVASCULAR: Normal. OSSEOUS STRUCTURES: No significant abnormalities. VISUALIZED UPPER ABDOMEN: Normal. OTHER FINDINGS: None. IMPRESSION: No interval acute cardiopulmonary disease appreciated.
== END 2017-01-03 01:50 | disposition home or self-care (01) ==
LOC: H.ER 00:22
DX: J06.9 Acute upper respiratory infection, unspecified (principal); E03.9 Hypothyroidism, unspecified; E78.5 Hyperlipidemia, unspecified; F20.9 Schizophrenia, unspecified; F31.9 Bipolar disorder, unspecified; F41.9 Anxiety disorder, unspecified; I10 Essential (primary) hypertension; J45.909 Unspecified asthma, uncomplicated; Z88.0 Allergy status to penicillin

== ENCOUNTER 2017-03-03 20:56 | Emergency (ER) | payer MEDICARE, MEDICAID ==
[2017-03-03 20:56] VITALS: BMI 29.1
[2017-03-03 21:08] VITALS: BP 132/89; PULSE 90; RESP 16; TEMP 97.6; O2SAT 100
--- NOTE | 2017-03-03 21:24 | ED PDOC ---
HPI: General Adult Time Seen by Provider: 03/03/17 21:11 Chief Complaint (Nursing): Abnormal Skin Integrity Chief Complaint (Provider): dental abscess History Per: Patient History/Exam Limitations: no limitations Onset/Duration Of Symptoms: Days (x 1) Current Symptoms Are (Timing): Still Present Additional Complaint(s): Jolanta Yancey is a 46-year-old female who presents to the emergency department complaining of right side dental abscess. She reports the area is painful and actively draining. Patient is taking Tylenol for pain which is helping. Her last dose was at 4PM. Patient is tolerating liquids and solids. PMD: none Past Medical History Reviewed: Historical Data, Nursing Documentation, Vital Signs Vital Signs: Last Vital Signs Temp 97.6 F 03/03/17 21:07 Pulse 90 03/03/17 21:07 Resp 16 03/03/17 21:07 BP 132/89 03/03/17 21:07 Pulse Ox 100 03/03/17 21:26 - Medical History PMH: Anemia, Anxiety, Asthma, Bipolar Disorder, Depression, HTN, Hyperlipidemia , Hypothyroidism, Paranoia, Schizophrenia, Seizures - Surgical History Surgical History: Tonsillectomy - Family History Family History: States: Hypertension - Social History Current smoker - smoking cessation education provided: No Alcohol: None Drugs: Denies - Home Medications Home Medications: Ambulatory Orders Medication Instructions Recorded Ambien 12/13/16 Ativan 12/13/16 Cogentin 12/13/16 Enalapril Maleate 12/13/16 Gabapentin 12/13/16 OLANZapine [ZyPREXA] 10 mg PO 12/13/16 Synthroid 12/13/16 Zoloft 12/13/16 Azithromycin [Zithromax] 250 mg PO QAM #1 pkg 01/03/17 Clindamycin [Cleocin] 0 mg PO QID #28 cap 03/03/17 - Allergies Allergies/Adverse Reactions: Allergies Allergy/AdvReac Type Severity Reaction Status Date / Time haloperidol Allergy Severe SWELLING Verified 12/12/16 14:37 metoclopramide Allergy Severe SWELLING Verified 12/12/16 14:37 shellfish derived Allergy Severe RASH Verified 12/12/16 14:37 prednisone Allergy Intermediate SWELLING Verified 12/12/16 14:37 aspirin Allergy SWELLING Verified 12/12/16 14:37 Penicillins Allergy ANAPHYLAXIS Verified 12/12/16 14:37 Review of Systems ROS Statement: Except As Marked, All Systems Reviewed And Found Negative Constitutional: Negative for: Fever, Chills ENT: Positive for: Other (dental abscess) Physical Exam - Reviewed Nursing Documentation Reviewed: Yes Vital Signs Reviewed: Yes - Physical Exam Appears: Positive for: Well, Non-toxic, No Acute Distress Head Exam: Positive for: ATRAUMATIC, NORMAL INSPECTION, NORMOCEPHALIC Skin: Positive for: Normal Color ENT: Positive for: Other (Poor dentition overall with actively draining abscess noted to right lower mandible gingiva. Airway patent. Uvulia is midline.) Neurologic/Psych: Positive for: Alert, Oriented - ECG O2 Sat by Pulse Oximetry: 100 (RA) Pulse Ox Interpretation: Normal Medical Decision Making Medical Decision Making: Time: 21:22 Initial Impression: 46 year old female with dental abscess Initial Plan: * Clindamycin 300 mg PO * Tylenol 650 mg PO Patient is medically stable. Will discharge home with rx clindaycin and instructions to take Tylenol as needed for pain. Referral to dental clinic provided. Advised patient to follow up in 2-3 days with dentist and take antibiotics as prescribed. There is agreement to discharge plan. Return if symptoms persist or worsen. Scribe Attestation: Documented by Michaelle Fountain, acting as a scribe for Alba Pritchett PA-C Provider Scribe Attestation: All medical record entries made by the Scribe were at my direction and personally dictated by me. I have reviewed the chart and agree that the record accurately reflects my personal performance of the history, physical exam, medical decision making, and the department course for this patient. I have also personally directed, reviewed, and agree with the discharge instructions and disposition. Disposition - Clinical Impression Clinical Impression: Dental abscess - Patient ED Disposition Is Patient to be Admitted: No Counseled Patient/Family Regarding: Diagnosis, Need For Followup, Rx Given - Disposition Referrals: [facility] [Outside] Disposition: Routine/Home Disposition Time: 21:29 Condition: STABLE Additional Instructions: Continue with tylenol for pain. Take antibiotics as directed. Follow up TIFFANIE with dentist. Prescriptions: Clindamycin [Cleocin] 0 mg PO QID #28 cap Instructions: Dental Abscess (ED) Forms: [employer] (Eritrean)
== END 2017-03-03 22:15 | disposition home or self-care (01) ==
LOC: H.ER 20:56
DX: K04.7 Periapical abscess without sinus (principal)

== ENCOUNTER 2017-10-12 09:13 | Emergency (ER) | payer MEDICARE, MEDICAID ==
[2017-10-12 09:15] VITALS: BMI 25.2
[2017-10-12 09:16] VITALS: TEMP 97.8; O2SAT 100
[2017-10-12] MEDS ORDERED: PROPARACAINE/FLUORESCEIN SOD 100 DROP/5 ML BOTTLE ONE (09:43)
--- NOTE | 2017-10-12 10:07 | ED PDOC ---
HPI: Eye Injury/Pain Time Seen by Provider: 10/12/17 09:35 Chief Complaint (Nursing): Eye Problem Chief Complaint (Provider): Eye Problem History Per: Patient History/Exam Limitations: no limitations Onset/Duration Of Symptoms: Hrs Current Symptoms Are (Timing): Still Present Wears Contact Lens?: No Associated Symptoms: Itching, Other (Redness) Additional Complaint(s): 46 years old homeless female with history of hypertension, hypothyroidism, anemia and bipolar disorder presents to the ED for evaluation of right eye pain and redness associated with crust onset this morning. Patient reports experiencing right sided nasal drip. She denies wearing contacts and denies any allergies to antibiotics. She states she is allergic to Asprin and Haldol. PMD: non provided Past Medical History Reviewed: Historical Data, Nursing Documentation, Vital Signs Vital Signs: Last Vital Signs Temp 97.8 F 10/12/17 09:15 Pulse 84 10/12/17 09:15 Resp 16 10/12/17 09:15 BP 144/99 H 10/12/17 09:15 Pulse Ox 100 10/12/17 09:15 - Medical History PMH: Anemia, Anxiety, Asthma, Bipolar Disorder, Depression, HTN, Hyperlipidemia , Hypothyroidism, Paranoia, Personality Disorder, Schizophrenia, Seizures Denies: Diabetes, Hepatitis, HIV, Chronic Kidney Disease, Sexually Transmitted Disease - Surgical History Surgical History: Tonsillectomy - Family History Family History: States: Unknown Family Hx, Hypertension - Social History Current smoker - smoking cessation education provided: No (Former) Alcohol: Social Drugs: Other - Immunization History Hx Tetanus Toxoid Vaccination: No Hx Influenza Vaccination: No Hx Pneumococcal Vaccination: No - Home Medications Home Medications: Ambulatory Orders Medication Instructions Recorded Ofloxacin Ophth 0.3% [Ocuflox 2 drop OS QID #1 bottle 06/07/17 Ophth 0.3%] Benztropine [Cogentin] 0.5 mg PO HS 30 Days #30 tab 07/21/17 Gabapentin [Neurontin] 200 mg PO TID 30 Days #90 cap 07/21/17 OLANZapine [Zyprexa] 20 mg PO HS 30 Days #60 tab 07/21/17 Zolpidem [Ambien] 5 mg PO HS PRN #30 tab 07/21/17 hydrOXYzine Pamoate [Vistaril] 25 mg PO TID PRN 30 Days #90 cap 07/21/17 Amoxicillin/Clavulanate [Augmentin 1 tab PO BID #14 tab 08/16/17 875 MG-125 MG] Ciprofloxacin/Dexamethasone 4 drop OT BID #1 bottle 09/14/17 [Ciprodex 0.3%-0.1% 7.5 Ml] Enalapril Maleate [Vasotec] 10 mg PO DAILY 30 Days #30 tab 10/07/17 Gabapentin [Neurontin] 300 mg PO TID #90 cap 10/07/17 Levothyroxine [Synthroid] 150 mcg PO DAILY@0630 15 Days #30 10/07/17 tab Multimineral/Multivitamin 1 tab PO DAILY 30 Days #30 tab 10/07/17 [Therapeutic-M Tab] QUEtiapine [Seroquel] 100 mg PO HS #30 tab 10/07/17 Sertraline [Zoloft] 50 mg PO DAILY #30 tab 10/07/17 busPIRone [Buspar] 10 mg PO TID 30 Days #90 tab 10/07/17 Polymyxin/Trimethoprim Sulfate 2 drop OD Q4H 7 Days #1 bottle 10/12/17 [Polytrim Ophth Soln] - Allergies Allergies/Adverse Reactions: Allergies Allergy/AdvReac Type Severity Reaction Status Date / Time haloperidol Allergy Severe SWELLING Verified 09/30/17 00:46 metoclopramide Allergy Severe SWELLING Verified 09/30/17 00:46 shellfish derived Allergy Severe RASH Verified 09/30/17 00:46 prednisone Allergy Intermediate SWELLING Verified 09/30/17 00:46 aspirin Allergy SWELLING Verified 09/30/17 00:46 Review of Systems ROS Statement: Except As Marked, All Systems Reviewed And Found Negative Eyes: Positive for: Pain, Conjunctivae Inflammation, Redness Physical Exam - Reviewed Nursing Documentation Reviewed: Yes Vital Signs Reviewed: Yes - Physical Exam Appears: Positive for: Non-toxic, No Acute Distress Skin: Positive for: Normal Color, Warm, Dry Eye Exam: Positive for: EOMI, PERRL, Conjunctival injection, Other (Crust. No fluorescein uptake). Negative for: Periorbital swelling, Periorbital tenderness , Scleral icterus Neurologic/Psych: Positive for: Alert, Oriented - ECG O2 Sat by Pulse Oximetry: 100 (RA) Pulse Ox Interpretation: Normal Medical Decision Making Medical Decision Making: Time: 958 Initial Plan: --Urine ----- Scribe Attestation: Documented by Haley Turner, acting as a scribe for Rand Vance MD. Provider Scribe Attestation: All medical record entries made by the Scribe were at my direction and personally dictated by me. I have reviewed the chart and agree that the record accurately reflects my personal performance of the history, physical exam, medical decision making, and the department course for this patient. I have also personally directed, reviewed, and agree with the discharge instructions and disposition. Disposition - Clinical Impression Clinical Impression: Conjunctivitis - Patient ED Disposition Is Patient to be Admitted: No - Disposition Referrals: Keshawn Rangel MD [Staff Provider] - Disposition: Routine/Home Disposition Time: 10:17 Condition: CRITICAL Prescriptions: Polymyxin/Trimethoprim Sulfate [Polytrim Ophth Soln] 2 drop OD Q4H 7 Days #1 bottle Instructions: Conjunctivitis ([place]) Forms: [employer] (Peruvian)
[2017-10-12] MEDS ORDERED: PROPARACAINE/FLUORESCEIN SOD 100 DROP/5 ML BOTTLE OU STA (10:48)
[2017-10-12 11:05] VITALS: BP 140/90; PULSE 82; RESP 20
== END 2017-10-12 11:03 | disposition home or self-care (01) ==
LOC: H.ER 09:13
DX: H10.9 Unspecified conjunctivitis (principal)

== ENCOUNTER 2018-05-03 14:29 | Emergency (ER) | payer OTHER ==
[2018-05-03 14:30] VITALS: BMI 24.4
[2018-05-03 15:31] VITALS: BP 120/73; PULSE 88; RESP 16; TEMP 98; O2SAT 98
--- NOTE | 2018-05-03 15:43 | ED PDOC ---
HPI: Psych/Substance Abuse Time Seen by Provider: 05/03/18 15:32 Chief Complaint (Nursing): Psychiatric Evaluation Chief Complaint (Provider): Psychiatric Evaluation History Per: Patient History/Exam Limitations: no limitations Onset/Duration Of Symptoms: Days (x 3) Current Symptoms Are (Timing): Still Present Suicide/Self Injury Attempted (Context): None Modifying Factor(s): None Associated Symptoms: Depression Additional Complaint(s): 47 year old female with a history of depression, schizoaffective disorder, HTN and hypothyroidism presents to the ED for psychiatric evaluation. Patient reports "feeling depressed" for three days. She is regularly compliant with her medications. However, she has not been able to sleep for three days. Currently has her menstrual period. Patient offers no physical complaints. Denies HI, SI and hallucinations. PMD: [facility] Past Medical History Reviewed: Historical Data, Nursing Documentation, Vital Signs Vital Signs: Last Vital Signs Temp 98.0 F 05/03/18 15:28 Pulse 88 05/03/18 15:28 Resp 16 05/03/18 15:28 BP 120/73 05/03/18 15:28 Pulse Ox 98 05/03/18 15:28 - Medical History PMH: Anemia, Anxiety, Asthma, Bipolar Disorder, Depression, HTN, Hyperlipidemia, Hypothyroidism, Paranoia, Personality Disorder, Schizophrenia, Seizures - Surgical History Surgical History: Tonsillectomy - Family History Family History: States: Hypertension - Home Medications Home Medications: Ambulatory Orders Medication Instructions Recorded RX: Zolpidem [Ambien] 5 mg PO HS PRN #30 tab 07/21/17 RX: Amoxicillin/Clavulanate 1 tab PO BID #14 tab 08/16/17 [Augmentin 875 MG-125 MG Tab] RX: QUEtiapine [Seroquel] 100 mg PO HS #30 tab 10/07/17 RX: Sertraline [Zoloft] 50 mg PO DAILY #30 tab 10/07/17 RX: Docusate [Colace] 100 mg PO BID 30 Days #60 cap 01/11/18 RX: Enalapril Maleate [Vasotec] 10 mg PO DAILY 30 Days #30 tab 01/11/18 RX: Gabapentin [Neurontin] 300 mg PO TID 30 Days #90 cap 01/11/18 RX: Levothyroxine [Synthroid] 150 mcg PO DAILY@0630 30 Days #30 01/11/18 tab RX: Multimineral/Multivitamin 1 tab PO DAILY 30 Days #30 tab 01/11/18 [Therapeutic-M Tab] RX: OLANZapine [Zyprexa] 20 mg PO HS 30 Days #60 tab 01/11/18 RX: Zolpidem [Ambien] 5 mg PO HS #30 tab 01/11/18 RX: busPIRone [Buspar] 10 mg PO BID 30 Days #60 tab 01/11/18 - Allergies Allergies/Adverse Reactions: Allergies Allergy/AdvReac Type Severity Reaction Status Date / Time haloperidol Allergy Severe SWELLING Verified 05/03/18 15:28 metoclopramide Allergy Severe SWELLING Verified 05/03/18 15:28 shellfish derived Allergy Severe RASH Verified 05/03/18 15:28 prednisone Allergy Intermediate SWELLING Verified 05/03/18 15:28 aspirin Allergy SWELLING Verified 05/03/18 15:28 Review of Systems ROS Statement: Except As Marked, All Systems Reviewed And Found Negative Constitutional: Positive for: Other (insomnia) Psych: Positive for: Depression Physical Exam - Reviewed Nursing Documentation Reviewed: Yes Vital Signs Reviewed: Yes - Physical Exam Comments: GENERAL APPEARANCE: Patient is awake, alert, oriented x 3, in no acute distress. SKIN: Warm, dry; (-) cyanosis ENMT: Mucous membranes moist. Airway patent: (-) stridor. NECK: Supple, FROM HEART AND CARDIOVASCULAR: (-) irregularity CHEST AND RESPIRATORY: (-) rales, (-) rhonchi, (-) wheezes; breath sounds equal. Respirations nonlabored. ABDOMEN: Soft, (-) distention, (-) tenderness, (-) guarding. NEURO AND PSYCH: Mental status as above. Affect: appropriate. (-) facial asymmetry. Strength and smile symmetric. Gait: steady. Speech: clear. - ECG O2 Sat by Pulse Oximetry: 98 (RA) Pulse Ox Interpretation: Normal Medical Decision Making Medical Decision Makin:30 Clinical Impression: psychiatric evaluation Initial Plan: --Crisis evaluation --Re-evaluation 1645 Per crisis evaluation, patient to be discharged per Dr Hoang with the diagnosis of Bipolar Disorder. On exam, patient remains AAOx3, in no acute distress. Vitals stable. Lab/Diagnostic results d/w the patient in great detail. Diagnosis of bipolar disorder d/w the patient. Based on history, exam and diagnostic results, plan will be for outpatient follow up as arranged by crisis. Patient instructed to follow-up with pmd / referral provided / the clinic in 1- 2 days without fail. Return to the emergency room at any time for any new or worsening symptoms. Patient states she fully agrees with and understands discharge instructions. States that she agrees with the plan and disposition. Verbalized and repeated discharge instructions and plan. I have given the patient opportunity to ask any additional questions. ----- Scribe Attestation: Documented by Annalise Rivera, acting as a scribe for Danielle Mayberry PA-C Provider Scribe Attestation: All medical record entries made by the Scribe were at my direction and personally dictated by me. I have reviewed the chart and agree that the record accurately reflects my personal performance of the history, physical exam, medical decision making, and the department course for this patient. I have also personally directed, reviewed, and agree with the discharge instructions and disposition. Disposition - Clinical Impression Clinical Impression: Bipolar disorder - Patient ED Disposition Is Patient to be Admitted: No Counseled Patient/Family Regarding: Studies Performed, Diagnosis, Need For Followup - Disposition Referrals: [facility] [Outside] Disposition: Routine/Home Disposition Time: 16:45 Condition: STABLE Additional Instructions: The emergency medical care you received today was directed at your acute symptoms. If you were prescribed any medication, please fill it and take as d irected. It may take several days for your symptoms to resolve. Return to the Emergency Department if your symptoms worsen, do not improve, or if you have any other problems. Please contact your doctor in 2 days for re-evaluation and follow up / or call one of the physicians/clinics you have been referred to that are listed on the Patient Visit Information form that is included in your discharge packet. Bring any paperwork you were given at discharge with you along with any medications you are taking to your follow up visit. Our treatment cannot replace ongoing medical care by a primary care provider (PCP) outside of the emergency department. Instructions: Bipolar Disorder Forms: [facility] (Welsh) Print Language: GABONESE - POA Present On Arrival: None
== END 2018-05-03 17:54 | disposition home or self-care (01) ==
LOC: H.ER 14:29
DX: F31.9 Bipolar disorder, unspecified (principal)

== ENCOUNTER 2018-07-04 23:27 | Emergency (ER) | payer OTHER ==
[2018-07-04 23:27] VITALS: BMI 24.4
[2018-07-04 23:29] VITALS: BP 131/83; TEMP 98
--- NOTE | 2018-07-05 01:11 | ED PDOC ---
HPI: General Adult Time Seen by Provider: 07/04/18 23:37 Chief Complaint (Nursing): Medical Clearance History Per: Patient History/Exam Limitations: no limitations Onset/Duration Of Symptoms: Mins Additional Complaint(s): 47 year old F with history of bipolar disorder, schizoaffective disorder, hypothyroidisim presenting under arrest for medical and psychiatric clearance. Patient reports that she is under arrest because of light rail tickets, states she has been anxious recently and "borderline depressed" because she has to hide her medications in the [facility] and is afraid of sleeping at night because she worries that people will steal her medications, states that she has "insomnia" now. Denies suicidal or homicidal ideations. Denies medical complaints. Past Medical History Reviewed: Historical Data, Nursing Documentation, Vital Signs Vital Signs: Last Vital Signs Temp 98.0 F 07/04/18 23:28 Pulse 92 H 07/04/18 23:28 Resp 16 07/04/18 23:28 BP 131/83 07/04/18 23:28 Pulse Ox 98 07/04/18 23:28 - Medical History PMH: Anemia, Anxiety, Asthma, Bipolar Disorder, Depression, HTN, Hyperlipidemia, Hypothyroidism, Paranoia, Personality Disorder, Schizophrenia, Seizures Denies: Diabetes, Hepatitis, HIV, Chronic Kidney Disease, Sexually Transmitted Disease - Surgical History Surgical History: Tonsillectomy - Family History Family History: States: Unknown Family Hx, Hypertension - Immunization History Hx Tetanus Toxoid Vaccination: No Hx Influenza Vaccination: No Hx Pneumococcal Vaccination: No - Home Medications Home Medications: Ambulatory Orders Medication Instructions Recorded Zolpidem [Ambien] 5 mg PO HS PRN #30 tab 07/21/17 Amoxicillin/Clavulanate [Augmentin 1 tab PO BID #14 tab 08/16/17 875 MG-125 MG Tab] QUEtiapine [Seroquel] 100 mg PO HS #30 tab 10/07/17 Sertraline [Zoloft] 50 mg PO DAILY #30 tab 10/07/17 Docusate [Colace] 100 mg PO BID 30 Days #60 cap 01/11/18 Enalapril Maleate [Vasotec] 10 mg PO DAILY 30 Days #30 tab 01/11/18 Gabapentin [Neurontin] 300 mg PO TID 30 Days #90 cap 01/11/18 Levothyroxine [Synthroid] 150 mcg PO DAILY@0630 30 Days #30 01/11/18 tab Multimineral/Multivitamin 1 tab PO DAILY 30 Days #30 tab 01/11/18 [Therapeutic-M Tab] OLANZapine [Zyprexa] 20 mg PO HS 30 Days #60 tab 01/11/18 Zolpidem [Ambien] 5 mg PO HS #30 tab 01/11/18 busPIRone [Buspar] 10 mg PO BID 30 Days #60 tab 01/11/18 - Allergies Allergies/Adverse Reactions: Allergies Allergy/AdvReac Type Severity Reaction Status Date / Time haloperidol Allergy Severe SWELLING Verified 07/04/18 23:28 metoclopramide Allergy Severe SWELLING Verified 07/04/18 23:28 shellfish derived Allergy Severe RASH Verified 07/04/18 23:28 prednisone Allergy Intermediate SWELLING Verified 07/04/18 23:28 aspirin Allergy SWELLING Verified 07/04/18 23:28 Review of Systems ROS Statement: Except As Marked, All Systems Reviewed And Found Negative Psych: Positive for: Anxiety. Negative for: Psychosis, Suicidal ideation, Withdrawal Physical Exam - Reviewed Nursing Documentation Reviewed: Yes Vital Signs Reviewed: Yes - Physical Exam Appears: Positive for: Well, Non-toxic, No Acute Distress Head Exam: Positive for: ATRAUMATIC, NORMAL INSPECTION, NORMOCEPHALIC Skin: Positive for: Normal Color, Warm, DRY Eye Exam: Positive for: EOMI, Normal appearance, PERRL ENT: Positive for: Normal ENT Inspection Neck: Positive for: Normal, Painless ROM Cardiovascular/Chest: Positive for: Regular Rate, Rhythm Respiratory: Positive for: CNT, Normal Breath Sounds Gastrointestinal/Abdominal: Positive for: Normal Exam, Soft Back: Positive for: Normal Inspection Extremity: Positive for: Normal ROM Neurological/Psych: Positive for: Awake, Alert, Normal Tone, Mood/Affect (Normal). Negative for: Motor/Sensory Deficits - ECG O2 Sat by Pulse Oximetry: 98 Pulse Ox Interpretation: Normal Medical Decision Making Medical Decision Makin47 year old presenting with anxiety, adjustment problems after arrest --Well appearing, not a danger to herself or others at this time --Will have crisis evaluate patient to further risk stratify patient 1AM --Crisis has evaluated patient and cleared patient with diagnosis of adjustment/anxiety by Dr. Longo Disposition - Clinical Impression Clinical Impression: Anxiety - Disposition Referrals: [facility] [Outside] Disposition: Routine/Home Disposition Time: 01:00 Condition: GOOD Additional Instructions: Medically and psychiatrically cleared for incarceration. Instructions: Anxiety, Adult (DC) Forms: [employer] (Emirati)
[2018-07-05 01:54] VITALS: PULSE 89; RESP 17; O2SAT 99
== END 2018-07-05 01:18 | disposition home or self-care (01) ==
LOC: H.ER 23:27
DX: F41.9 Anxiety disorder, unspecified (principal); Z86.59 Personal history of other mental and behavioral disorders; I10 Essential (primary) hypertension; J45.909 Unspecified asthma, uncomplicated

== ENCOUNTER 2018-07-13 01:43 | Emergency (ER) | payer OTHER ==
[2018-07-13 01:54] VITALS: BMI 26.6
--- NOTE | 2018-07-13 04:18 | ED PDOC ---
HPI:Nausea, Vomiting, Diarrhea Time Seen by Provider: 07/13/18 01:47 Chief Complaint (Nursing): GI Problem Chief Complaint (Provider): GI Problem History Per: Patient History/Exam Limitations: no limitations Onset/Duration Of Symptoms: Days (x 1) Current Symptoms Are (Timing): Better Associated Symptoms: Vomiting Additional Complaint(s): 47 year old female well known to the ED for psychiatric history presents to the ED for evaluation of vomiting "a few times" today. Patient reports she is feeling better now and has not vomited since 9 pm. However, she has not tried to eat or drink anything and is now requesting juice. PMD: Dr. Mao Méndez Past Medical History Reviewed: Historical Data, Nursing Documentation, Vital Signs Vital Signs: Last Vital Signs Temp 98.4 F 07/13/18 01:54 Pulse 97 H 07/13/18 01:54 Resp 18 07/13/18 01:54 BP 124/65 07/13/18 01:54 Pulse Ox 100 07/13/18 01:54 Primary Care Physician: Dev Cavanaugh MD - Medical History PMH: Anemia, Anxiety, Asthma, Bipolar Disorder, Depression, HTN, Hyperlipidemia, Hypothyroidism, Paranoia, Personality Disorder, Schizophrenia, Seizures Denies: Diabetes, Hepatitis, HIV, Chronic Kidney Disease, Sexually Transmitted Disease - Surgical History Surgical History: Tonsillectomy - Family History Family History: States: Unknown Family Hx, Hypertension - Immunization History Hx Tetanus Toxoid Vaccination: No Hx Influenza Vaccination: No Hx Pneumococcal Vaccination: No - Home Medications Home Medications: Ambulatory Orders Medication Instructions Recorded Zolpidem [Ambien] 5 mg PO HS PRN #30 tab 07/21/17 Amoxicillin/Clavulanate [Augmentin 1 tab PO BID #14 tab 08/16/17 875 MG-125 MG Tab] QUEtiapine [Seroquel] 100 mg PO HS #30 tab 10/07/17 Sertraline [Zoloft] 50 mg PO DAILY #30 tab 10/07/17 Docusate [Colace] 100 mg PO BID 30 Days #60 cap 01/11/18 Enalapril Maleate [Vasotec] 10 mg PO DAILY 30 Days #30 tab 01/11/18 Gabapentin [Neurontin] 300 mg PO TID 30 Days #90 cap 01/11/18 Levothyroxine [Synthroid] 150 mcg PO DAILY@0630 30 Days #30 01/11/18 tab Multimineral/Multivitamin 1 tab PO DAILY 30 Days #30 tab 01/11/18 [Therapeutic-M Tab] OLANZapine [Zyprexa] 20 mg PO HS 30 Days #60 tab 01/11/18 Zolpidem [Ambien] 5 mg PO HS #30 tab 01/11/18 busPIRone [Buspar] 10 mg PO BID 30 Days #60 tab 01/11/18 - Allergies Allergies/Adverse Reactions: Allergies Allergy/AdvReac Type Severity Reaction Status Date / Time haloperidol Allergy Severe SWELLING Verified 07/13/18 01:54 metoclopramide Allergy Severe SWELLING Verified 07/13/18 01:54 shellfish derived Allergy Severe RASH Verified 07/13/18 01:54 prednisone Allergy Intermediate SWELLING Verified 07/13/18 01:54 aspirin Allergy SWELLING Verified 07/13/18 01:54 Review of Systems ROS Statement: Except As Marked, All Systems Reviewed And Found Negative Gastrointestinal: Positive for: Vomiting Physical Exam - Reviewed Nursing Documentation Reviewed: Yes Vital Signs Reviewed: Yes - Physical Exam Appears: Positive for: Non-toxic, No Acute Distress Head Exam: Positive for: ATRAUMATIC, NORMAL INSPECTION, NORMOCEPHALIC Skin: Positive for: Normal Color, Warm Eye Exam: Positive for: EOMI, Normal appearance, PERRL Neck: Positive for: Normal, Painless ROM, Supple Cardiovascular/Chest: Positive for: Regular Rate, Rhythm Respiratory: Positive for: Normal Breath Sounds. Negative for: Respiratory Distress Gastrointestinal/Abdominal: Positive for: Normal Exam, Soft. Negative for: Tenderness Back: Positive for: Normal Inspection. Negative for: L CVA Tenderness, R CVA Tenderness Extremity: Positive for: Normal ROM (x 4). Negative for: Deformity Neurological/Psych: Positive for: Awake, Alert, Normal Tone, Oriented (x 3). Negative for: Motor/Sensory Deficits - ECG O2 Sat by Pulse Oximetry: 100 (RA) Pulse Ox Interpretation: Normal Medical Decision Making Medical Decision Makin:47 A&P: resolved vomiting Will PO challenge patient and likely discharge. 5:30 Patient observed in ED overnight without vomiting or any complaint Stable for outpatient followup Scribe Attestation: Documented by Annalise Rivera, acting as a scribe Bret De Jesus MD Provider Scribe Attestation: All medical record entries made by the Scribe were at my direction and personally dictated by me. I have reviewed the chart and agree that the record accurately reflects my personal performance of the history, physical exam, medical decision making, and the department course for this patient. I have also personally directed, reviewed, and agree with the discharge instructions and disposition. Disposition - Clinical Impression Clinical Impression: Vomiting - Patient ED Disposition Is Patient to be Admitted: No Counseled Patient/Family Regarding: Need For Followup - Disposition Referrals: Dev Cavanaugh MD [Primary Care Provider] - Disposition: Routine/Home Disposition Time: 05:59 Condition: GOOD Instructions: Nausea and Vomiting, Adult (DC) Forms: [employer] (Belarusian)
[2018-07-13 06:12] VITALS: BP 117/61; PULSE 80; RESP 16; TEMP 98.1; O2SAT 99
== END 2018-07-13 06:20 | disposition home or self-care (01) ==
LOC: H.ER 01:43
DX: R11.10 Vomiting, unspecified (principal)

== ENCOUNTER 2018-07-27 02:40 | Emergency (ER) | payer OTHER ==
[2018-07-27 02:40] VITALS: BMI 26.6
[2018-07-27 03:02] VITALS: BP 123/85; PULSE 79; RESP 16; TEMP 99; O2SAT 100
[2018-07-27] MEDS ORDERED: Sodium Chloride 0.9% 1,000 ML IV STA (03:06)
--- NOTE | 2018-07-27 03:40 | ED PDOC ---
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 Otherwise, denies chest and abdominal pain. PMD: Dev Cavanaugh Past Medical History Reviewed: Historical Data, Nursing Documentation, Vital Signs Vital Signs: Last Vital Signs Temp 99.0 F 07/27/18 02:56 Pulse 79 07/27/18 02:56 Resp 16 07/27/18 02:56 BP 123/85 07/27/18 02:56 Pulse Ox 100 07/27/18 02:56 Primary Care Provider: Dev Cavanaugh - Medical History PMH: Anemia, Anxiety, Asthma, Bipolar Disorder, Depression, HTN, Hyperlipidemia, Hypothyroidism, Paranoia, Personality Disorder, Schizophrenia, Seizures Denies: Diabetes, Hepatitis, HIV, Chronic Kidney Disease, Sexually Transmitted Disease - Surgical History Surgical History: Tonsillectomy - Family History Family History: States: Hypertension - Living Arrangements Living Arrangements: Other (homeless) - Social History Current smoker - smoking cessation education provided: No Alcohol: None Drugs: Denies - Immunization History Hx Tetanus Toxoid Vaccination: No Hx Influenza Vaccination: No Hx Pneumococcal Vaccination: No - Home Medications Home Medications: Ambulatory Orders Medication Instructions Recorded Zolpidem [Ambien] 5 mg PO HS PRN #30 tab 07/21/17 Amoxicillin/Clavulanate [Augmentin 1 tab PO BID #14 tab 08/16/17 875 MG-125 MG Tab] QUEtiapine [Seroquel] 100 mg PO HS #30 tab 10/07/17 Sertraline [Zoloft] 50 mg PO DAILY #30 tab 10/07/17 Docusate [Colace] 100 mg PO BID 30 Days #60 cap 01/11/18 Enalapril Maleate [Vasotec] 10 mg PO DAILY 30 Days #30 tab 10/24/18 Gabapentin [Neurontin] 300 mg PO TID 30 Days #90 cap 01/11/18 Levothyroxine [Synthroid] 150 mcg PO DAILY@0630 30 Days #30 01/11/18 tab Multimineral/Multivitamin 1 tab PO DAILY 30 Days #30 tab 01/11/18 [Therapeutic-M Tab] OLANZapine [Zyprexa] 20 mg PO HS 30 Days #60 tab 01/11/18 Zolpidem [Ambien] 5 mg PO HS #30 tab 01/11/18 busPIRone [Buspar] 10 mg PO BID 30 Days #60 tab 01/11/18 Famotidine [Pepcid] 20 mg PO Q12 #14 tab 07/27/18 Ondansetron ODT [Zofran ODT] 4 mg PO Q6 PRN #8 odt 07/27/18 - Allergies Allergies/Adverse Reactions: Allergies Allergy/AdvReac Type Severity Reaction Status Date / Time haloperidol Allergy Severe SWELLING Verified 07/13/18 01:54 metoclopramide Allergy Severe SWELLING Verified 07/13/18 01:54 shellfish derived Allergy Severe RASH Verified 07/13/18 01:54 prednisone Allergy Intermediate SWELLING Verified 07/13/18 01:54 aspirin Allergy SWELLING Verified 07/13/18 01:54 Review of Systems ROS Statement: Except As Marked, All Systems Reviewed And Found Negative Cardiovascular: Negative for: Chest Pain Gastrointestinal: Positive for: Nausea, Vomiting (x3 episodes non-bloody non-b ilious). Negative for: Abdominal Pain Physical Exam - Reviewed Nursing Documentation Reviewed: Yes Vital Signs Reviewed: Yes - Physical Exam Appears: Positive for: No Acute Distress Head Exam: Positive for: ATRAUMATIC, NORMAL INSPECTION, NORMOCEPHALIC Skin: Positive for: Normal Color, Warm, DRY Eye Exam: Positive for: Normal appearance ENT: Positive for: Normal ENT Inspection Neck: Positive for: Normal, Painless ROM, Supple Cardiovascular/Chest: Positive for: Regular Rate, Rhythm Respiratory: Positive for: Normal Breath Sounds. Negative for: Respiratory Distress Gastrointestinal/Abdominal: Positive for: Normal Exam, Soft. Negative for: Tenderness, Mass, Guarding, Rebound Back: Positive for: Normal Inspection Extremity: Positive for: Normal ROM (all extermities) Neurological/Psych: Positive for: Awake, Alert, Oriented (x3). Negative for: Motor/Sensory Deficits - Laboratory Results Result Diagrams: 07/27/18 03:33 07/27/18 03:33 - ECG O2 Sat by Pulse Oximetry: 100 (RA) Pulse Ox Interpretation: Normal Medical Decision Making Medical Decision Making: Time: 305 Initial Impression: 47 year old female with acute gastritis Initial Plan: --CMP --Lipase --U-preg --CBC with differential --Normal saline IV --Zofran 4mg IV --Urinalysis --Reevaluation 434 Labs reviewed for no clinically significant abnormalities. At this time, patient reports improvement in symptoms and is stable for discharge with diagnosis of gastritis. Scripts to be given for Pepcid and Zofran. All questions answered and return parameters discussed. -------- --------- Scribe Attestation: Documented by Ankita Abebe, acting as a scribe for Gregory Augustine MD. Provider Scribe Attestation: All medical record entries made by the Scribe were at my direction and personally dictated by me. I have reviewed the chart and agree that the record accurately reflects my personal performance of the history, physical exam, medical decision making, and the department course for this patient. I have also personally directed, reviewed, and agree with the discharge instructions and disposition. Disposition - Clinical Impression Clinical Impression: Gastritis - Disposition Disposition Time: 04:39 Condition: STABLE Prescriptions: Famotidine [Pepcid] 20 mg PO Q12 #14 tab Ondansetron ODT [Zofran ODT] 4 mg PO Q6 PRN #8 odt PRN Reason: Nausea/Vomiting Instructions: Gastritis Forms: [employer] (Malay)
[2018-07-27 03:46] LABS: BASO # 0.2 K/uL (0.0-0.2); BASO % 2.4 % (0.0-2.0); EOS # 0.2 K/uL (0.0-0.7); EOS % 2.1 % (0.0-4.0); HEMOGLOBIN 12.8 g/dL (12.0-16.0); LYMPH # 2.7 K/uL (1.0-4.3); LYMPH % 33.3 % (20.0-40.0); MEAN CELL VOLUME 86.9 fl (81.0-99.0); MEAN CORPUSCULAR HEMOGLOBIN 28.8 pg (27.0-31.0); MEAN CORPUSCULAR HGB CONC 33.1 g/dL (33.0-37.0); MEAN PLATELET VOLUME 9.4 fl (7.2-11.7); MONO # 0.6 K/uL (0.0-0.8); MONO % 7.4 % (0.0-10.0); NEUT # 4.5 K/uL (1.8-7.0); NEUT % 54.8 % (50.0-75.0); NRBC % 0.1 % (0.0-0.0); RBC 4.44 Mil/uL (3.80-5.20); RED CELL DISTRIBUTION WIDTH 14.1 % (11.5-14.5); WHITE BLOOD COUNT 8.1 K/uL (4.8-10.8)
[2018-07-27 03:55] LABS: ALBUMIN 4.5 g/dL (3.5-5.0); BLOOD UREA NITROGEN 8 mg/dl (7-17); CALCIUM 8.9 mg/dL (8.4-10.2); GFR NON-AFRICAN AMERICAN > 60; LIPASE 143 U/L (23-300)
[2018-07-27 03:58] LABS: ALT/SGPT 20 U/L (9-52); AST/SGOT 29 U/L (14-36)
[2018-07-27 03:59] LABS: SQUAMOUS EPITHIAL 21 /hpf (0-5); URINE BACTERIA RARE (<OCC); URINE BILIRUBIN NEGATIVE (NEGATIVE); URINE BLOOD LARGE (NEGATIVE); URINE CLARITY CLOUDY (Clear); URINE COLOR YELLOW (YELLOW); URINE GLUCOSE (UA) NEG (NEGATIVE); URINE LEUKOCYTE ESTERASE TRACE Leu/uL (Negative); URINE PROTEIN 30 mg/dL (NEGATIVE); URINE UROBILINOGEN 0.2-1.0 mg/dL (0.2-1.0)
== END 2018-07-27 06:15 | disposition home or self-care (01) ==
LOC: H.ER 02:40
DX: K29.00 Acute gastritis without bleeding (principal); E03.9 Hypothyroidism, unspecified; E78.5 Hyperlipidemia, unspecified; F31.9 Bipolar disorder, unspecified; I10 Essential (primary) hypertension
CPT/HCPCS: 80053; 81003; 81025; 83690; 85025; 96361; 96374; 99284; J2405; J7030